=== PATIENT | female | born 1980 | race Caucasian/White ===

== ENCOUNTER 2018-03-09 16:33 | Emergency (ER) | payer OTHER ==
[~2018-03-09] VITALS: Ht 162.6 cm; Wt 67.1 kg
[2018-03-09 16:35] VITALS: BP 178/109
--- NOTE | 2018-03-09 16:41 | NUR ---
PATIENT BIBA TO BED 6 AT THIS TIME.
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
--- NOTE | 2018-03-09 17:36 | NUR ---
JESU. TECH AT TAKING PATIENT TO XRAY VIA [facility].
[2018-03-09] MEDS ORDERED: KETOROLAC 60 MG/2 ML VIAL IM ONE (18:00)
[2018-03-09] MEDS ORDERED: MORPHINE SULFATE 4 MG/ML SYR IM ONE (18:55)
[2018-03-09 20:12] VITALS: BP 163/94
--- NOTE | 2018-03-09 20:12 | NUR ---
Patient discharged with v/s stable. Written and verbal after care instructions given and explained. Patient alert, oriented and verbalized understanding of instructions. Ambulatory with steady gait. All questions addressed prior to discharge. ID band removed. Patient advised to follow up with PMD. Rx of norco and motrin given. Patient educated on indication of medication including possible reaction and side effects. Opportunity to ask questions provided and answered.
== END 2018-03-09 20:12 | disposition home or self-care (01) ==
LOC: MED 16:33
DX: S82.141A Displaced bicondylar fracture of right tibia, initial encounter for closed fracture (principal); V43.52XA Car driver injured in collision with other type car in traffic accident, initial encounter; Y93.89 Activity, other specified; Y92.89 Other specified places as the place of occurrence of the external cause; Y99.8 Other external cause status
CPT/HCPCS: 29505; 72040; 72080; 72170; 73562; 81025; 96372; 99283; J1885; J2270